=== PATIENT | male | born 2005 ===

== ENCOUNTER 2024-12-18 23:04 | Emergency (ER) | payer BC, SELFPAY ==
[2024-12-18 23:08] VITALS: BP 151/108
[2024-12-18 23:51] VITALS: BMI 23.9
[2024-12-19] VITALS (9 sets, daily range): BP systolic 116–160; BP diastolic 75–105
[2024-12-19] MEDS: DILAUDID 1 MG IV (00:13)
--- NOTE | 2024-12-19 00:13 | ED.MUSCINJ ---
HPI-Injury
General
Chief Complaint: Musculo-Skeletal Complaint
Source: patient and family
Exam Limitations: none
Time Seen by Provider: 12/18/24 23:52
Nursing documentation reviewed up to this point in time: agreed with
History of Present Illness-Injury
Is this injury a work related problem?: No
Is pt an associate of [facility]/[place]?: No
Initial Injury comments:
19-year-old male injured his right shoulder playing ice hockey history of the same requiring surgery in [facility] few years back
No head strike no neck pain does feel some numbness and pain in his right shoulder
Past History
Past History
ED Past Surgical History: Orthopedic
Social History
Tobacco: Non-smoker
Alcohol: None
Drug: None
Personal: Single
Living: with family
Employment: Student
Review of Systems
Review of Systems
All Other Systems: Not applicable
ABD/GI: Reports nausea
Musculoskeletal: Reports joint pain
Phy Exam
Physical Exam
Physical Exam:
Physical Exam
General: 19-year-old male looks uncomfortable due to pain
Neck: No posterior neck pain no tongue
Heart: Regular
Lungs: no acute respiratory distress.
Neuro: alert and oriented. no focal neurological deficits
Skin: no rash
Psychiatric: well kept. interactive and cooperative
Extremities: Shallow deformity of the right shoulder axillary nerve sensation intact strong radial pulse
Injury Course
Orders/Labs/Results
Orders:
Orders
12/18/24 23:14
CR Shoulder - Right Min 2 View Urgent
Reason For Exam: playing ice hockey, hit in R shoulder
12/19/24 00:10
HYDROmorphone [Dilaudid] 1 mg IV NOW STA
12/19/24 00:11
ASA Classification Routine
Shoulder Immobilizer Right- Tx ONCE
Ondansetron Injectable [Zofran] 4 mg IV NOW STA
Propofol [Diprivan] 100 mg IV NOW STA
12/19/24 00:42
Shoulder, Right 1 View [CR Shoulder - Right 1 View] Urgent
Comment:
Reason For Exam: post reduction
Procedures
Moderate Sedation
ASA Risk Score: Class I
Chart and allergies reviewed: Yes
Consent for anesthesia obtained: Yes
Time out completed (validating right patient & procedure): Yes
Moderate Sedation Start Time(when first medication is given): 00:36
History of difficult intubation: No
Airway free of obstruction: Yes
Patient has a gag reflex: Yes
Patient is able to open mouth: Yes
Patient has no dentures: Yes
Patient has no loose teeth: Yes
Medication administered by Provider during Moderate Sedation: IV Propofol (mg)
Total dose administered: 150
Time drug administered: 00:36
Moderate Sedation Procedure End Time: 00:46
Splint Check
Splint checked by provider?: Yes
Circulation/Movement/Sensation post splint application: brisk cap refill
Splinting/Sling Placement
Right shoulder:
Procedure completed by: shaggy
Pre-splint extermity exam: neurovascular intact
Splint material: universal
Splint checked by provider?: Yes
Type of sling: shoulder immobilizer
Normal distal neurovascular exam?: Yes
Joint/Fracture Reduction
Right shoulder:
Indication for procedure:: Dislocated
Procedure completed by: Sloan
Consent form signed: Yes
Joint reduced: with anesthesia sedation
Anesthesia/sedation: 1% Lidocaine w/ Epi, Injection to joint space and Moderate sedation
Injury was: closed
Further treatement: needs re-check only
Post reduction exam: stable
Capillary Refill: normal
Normal distal neurovascular exam?: Yes
Peripheral Pulses: radial (right): 4+
MDM/Problems Addressed
Differential Diagnosis Includes:
AC separation shoulder dislocation humerus fracture clavicle fracture
MDM/Problems Addressed:
Shoulder pain
Chronic conditions affecting care:
Prior shoulders
Acute Exacerbation and/or Progression of Chronic Illness:
Prior shoulder surgery
*Radiology
Radiology exam reviewed: preliminary read by ED provider
*Pulse Oximetry
Patient hypoxic: no
*Physician Surgeon Interpretation
Rate: normal
Interpretation: normal
Heart Rate: 78
Rhythm: sinus
*Critical Care Note
Total Time (30-74mins, 75-104mins- exclusive of procedures): Not Applicable
Update Note
Update Note:
Attempt at reduction with local anesthetic unsuccessful we will prepped for procedural sedation traction countertraction
Reduced without difficulty with traction countertraction
ED Attending Note
-
Portions of this chart may have been created with voice recognition software.� Occasional wrong word or��sound alike� substitutions may have occurred due to the inherent limitations of voice recognition software.
Discharge Plan
Departure
Patient Disposition: Home (Routine Discharge)
Date of Disposition: 12/19/24
Time of Disposition: 00:55
Patient with high blood pressure during this ER visit?: No
Condition: Good
Discharge Problem:
Anterior shoulder dislocation, moderate sedation
Instructions: Shoulder Dislocation (DC), How to Use a Shoulder Sling, Using Cold for Pain, MODERATE SEDATION ADULT
Prescriptions:
New
ibuprofen 600 mg tablet
600 mg PO Q8H PRN (Reason: Pain) Qty: 30 0RF
Referrals:
Dariel Tian MD [Family Provider, Internal Medicine]
Willard See MD [Active, Orthopedics] - Next open appointment
Activity Restrictions/Additional Instructions:
Follow-up with your prior orthopedist or [facility] orthopedics
Interventions
Interventions:
*Risk Screen - Suicide Last Done: 12/18/24 23:08
*Neglect/Abuse Screening Last Done: 12/18/24 23:47
*ED- Fall Risk Assessment Last Done: 12/18/24 23:47
*ED COVID-19 Vaccine History Last Done: 12/18/24 23:47
ED-Musculoskeletal Assessment Last Done: 12/18/24 23:58
Discharge Date and Time
Print Language: HAITIAN
[2024-12-19] MEDS: ZOFRAN 4 MG IV (00:19)
[2024-12-19] MEDS: TORADOL 30 MG IV (01:21)
== END 2024-12-19 01:45 | disposition home or self-care (01) ==
LOC: EMR 23:04
PROVIDERS: EMERGENCY PHYSICIAN Emergency Medicine; FAMILY PHYSICIAN Internal Medicine Gastroenterology
DX: S43.084A Other dislocation of right shoulder joint, initial encounter (principal); W50.0XXA Accidental hit or strike by another person, initial encounter
CPT/HCPCS: 99284; 23650; 96374; 96375 ×2; 99152; 73020; 73030